=== PATIENT | male | born 1970 | race Caucasian/White ===

== ENCOUNTER 2023-08-11 10:37 | Emergency (ER) | payer MEDICAID, OTHER ==
[~2023-08-11] VITALS: Ht 185.4 cm; Wt 93.0 kg
[2023-08-11 10:39] VITALS: BP 132/84; PULSE 73; RESP 18; TEMP 97.7; O2SAT 98
[2023-08-11 10:49] VITALS: BP 132/84; PULSE 73; RESP 18; TEMP 97.7
[2023-08-11 10:50] VITALS: O2SAT 98
[2023-08-11] MEDS ORDERED: AMOX1TAB8 PO (11:20)
[2023-08-11] MEDS ORDERED: ACET-8905 PO (11:20)
== END 2023-08-11 11:29 | disposition home or self-care (01) ==
LOC: MED 10:37
DX: K04.7 Periapical abscess without sinus (principal)
CPT/HCPCS: 99283

== ENCOUNTER 2024-05-10 20:47 | Emergency (ER) | payer OTHER ==
[~2024-05-10] VITALS: Ht 185.4 cm; Wt 90.7 kg
[~2024-05-10 20:47] MED LIST: ACET-10509 PO; ACET-8905 PO; AMOX1TAB8 PO; NAPR-337 PO
[2024-05-10 21:01] VITALS: BP 134/76; PULSE 105; RESP 18; TEMP 100.3; O2SAT 98
[2024-05-10] MEDS: ACETAMINOPHEN EXTRA STRENGTH 500 MG TAB PO ONE (21:45)
[2024-05-10 22:11] LABS: BASOPHILS % (AUTO) 0.6 % (0.0-2.0); EOSINOPHILS % (AUTO) 0.3 % (0.0-4.0); HEMATOCRIT 38.2 % (36-52); HEMOGLOBIN 12.9 g/dL (12.0-18.0); LYMPHOCYTES # (AUTO) 1.2 K/uL (2.0-11.5); LYMPHOCYTES % (AUTO) 20.8 % (20.5-51.1); MEAN CORPUSCULAR HEMOGLOBIN 30 pg (27-31); MEAN CORPUSCULAR HGB CONC 34 g/dL (33-37); MONOCYTES # (AUTO) 0.7 K/uL (0.8-1.0); MONOCYTES % (AUTO) 11.6 % (1.7-9.3); NEUTROPHILS # (AUTO) 3.9 K/uL (1.8-7.7); NEUTROPHILS % (AUTO) 66.7 % (42.2-75.2); PLATELET COUNT (AUTO) 201 K/uL (140-450); RED BLOOD CELL COUNT(AUTO) 4.29 MIL/uL (4.20-6.10); RED CELL DISTRIBUTION WIDTH 12.8 % (11.6-13.7); WHITE BLOOD COUNT (AUTO) 5.9 K/uL (4.8-10.8)
[2024-05-10 22:26] LABS: FLU A ANTIGEN negative (NEGATIVE); FLU B ANTIGEN NEGATIVE (NEGATIVE)
[2024-05-10 22:34] LABS: ALANINE AMINOTRANSFERASE 72 U/L (12-78); ALBUMIN 3.5 g/dL (3.4-5.0); ALKALINE PHOSPHATASE 92 U/L (50-136); ANION GAP 10.8 (8-16); ASPARTATE AMINOTRANSFERASE 32 U/L (15-37); CALCIUM 8.8 mg/dL (8.5-10.1); CARBON DIOXIDE 30.7 mmol/L (21-32); CHLORIDE 98 mmol/L (98-107); GFR ARICAN-AMERICAN 101 mL/min (>90); GFR NON ARICAN-AMERICAN 83 mL/min (>90); GLUCOSE 112 mg/dL (74-106); POTASSIUM 3.5 mmol/L (3.5-5.1); SODIUM SERUM 136 mmol/L (136-145); TOTAL BILIRUBIN 0.6 mg/dL (0.0-1.0); TOTAL PROTEIN, SERUM 7.6 g/dL (6.4-8.2); UREA NITROGEN, BLOOD 12 mg/dL (7-18)
[2024-05-10 22:35] LABS: LACTIC ACID 0.9 mmol/L (0.4-2.0)
[2024-05-10 22:44] VITALS: BP 128/76; PULSE 100; RESP 18; TEMP 98; O2SAT 98
[2024-05-10 23:20] LABS: APPEARANCE,URINE CLEAR (CLEAR); BILIRUBIN,URINE NEGATIVE (NEGATIVE); BLOOD, URINE NEGATIVE (NEGATIVE); COLOR,URINE YELLOW (YELLOW); LEUKOCYTE ESTERASE ,URINE NEGATIVE (NEGATIVE); NITRITE, URINE NEGATIVE (NEGATIVE); PROTEIN,URINE NEGATIVE (NEGATIVE); UGLUCOSE NEGATIVE (NEGATIVE)
[2024-05-10 23:28] LABS: AMPHETAMINE, URINE NEGATIVE ng/ml (NEG <=1000); BARBITURATE, URINE NEGATIVE ng/ml (NEG <=200); BENZODIAZEPINE, URINE NEGATIVE ng/mL (NEG <=200); CANNABINOID, URINE NEGATIVE ng/mL (NEG <=50); COCAINE, URINE NEGATIVE ng/mL (NEG <=300); OPIATE, URINE NEGATIVE ng/mL (NEG <=2000); PHENCYCLIDINE SCREEN,URINE NEGATIVE ng/mL (NEG <=25)
[2024-05-10] MEDS ORDERED: ACET-10509 PO (23:47)
[2024-05-10] MEDS ORDERED: AMOX1TAB8 PO (23:47)
[2024-05-10] MEDS ORDERED: NAPR-337 PO (23:47)
== END 2024-05-10 23:55 | disposition home or self-care (01) ==
LOC: MED 20:47
DX: R50.9 Fever, unspecified (principal); R07.89 Other chest pain; R53.83 Other fatigue; Z20.822 Contact with and (suspected) exposure to COVID-19; Z79.1 Long term (current) use of non-steroidal anti-inflammatories (NSAID); Z79.2 Long term (current) use of antibiotics
CPT/HCPCS: 36415; 71045; 80053; 80305; 81003; 83605; 84484; 85025; 87040; 87081; 87086; 93005; 99285